=== PATIENT | male | born 1955 | race African-American/Black ===

== ENCOUNTER 2017-01-13 07:16 | Inpatient (IN) | payer OTHER ==
--- NOTE | ~2017-01-13 | DS ---
Unit #: [id number] #: [id number] Patient: HARRIET FORD [id number] [facility] [address] [place] [address] [id number] I MR#: [id number] NAME: HARRIET FORD. ROOM: [facility] Age: 61 Sex: M Admission Date: 01/13/2017 : 1955 Discharge Date: 01/22/2017 Attending Physician: Yosef Friend M.D. Primary Care Physician: Jamie Nino M.D. DISCHARGE SUMMARY REASON FOR ADMISSION Harriet is a 61-year-old man with a history of schizophrenia, who came in reporting that he had been off his medications, was paranoid and hopeless with suicidal ideation. He was admitted for stabilization. DIAGNSOTIC STUDIES LABORATORY RESULTS: Please see hospital chart. HOSPITAL COURSE The patient was admitted and placed on suicide and psychosis precautions. Seroquel 600 mg b.i.d. was restarted. The patient had an uneventful hospital course, staying mainly in his room away from peers and staff, and participating only rarely in psychotherapy groups and activities. He did make plans with the social work nurse to attend the [facility] Crisis [facility] after discharge, and on the date of discharge, he contracted for safety with no further suicidal ideation, intent, or plan. DISCHARGE DIAGNOSES AXIS I: Schizophrenia, paranoid type, F20.0. AXIS II: No diagnosis. AXIS III: History of degenerative disk disease. AXIS IV: AXIS V: DISCHARGE INSTRUCTIONS Follow up with [facility]. DISCHARGE MEDICATIONS Seroquel 300 mg b.i.d. for psychosis. CONDITION AT DISCHARGE Improved. PROGNOSIS Fair to good. DIET AND ACTIVITY Per primary care doctor. Dictated by... Yosef Friend M.D. Unit #: [id number] #: [id number] Patient: HARRIET FORD MR/modl TD: 01/22/2017 11:57 JOB #: [id number] DISCHARGE SUMMARY Page 1 of 1 X Yosef Friend MD X DISCHARGE SUMMARY
--- NOTE | ~2017-01-13 | PN ---
Unit #: [id number] #: [id number] Patient: HARRIET FORD [id number] [facility] [address] [place] [address] [id number] MR#: [id number] NAME: HARRIET FORD ROOM: P214 Age: 61 Sex: M Admission Date: 01/13/2017 : 1955 Attending Physician: Yosef Friend M.D. Admitting Physician: Yosef Friend M.D. Primary Care Physician: Jamie Nino M.D. [facility] PROGRESS NOTES DATE 01/20/2017 DISCUSSION Harriet is quiet and cooperative on the unit today. He has a placement coming up Sunday at the [facility] crisis stabilization unit. He is alert and fully oriented and continues to vaguely endorse suicidal ideation but feels safe going to [facility]. ASSESSMENT Major depression. PLAN Continue current treatment plan. Dictated by... Yosef Friend M.D. MRH/ts TD: 01/23/2017 08:52 JOB #: [id number] [facility] PROGRESS NOTES Page 1 of 1 X Yosef Friend MD PROGRESS NOTE
--- NOTE | ~2017-01-13 | PA ---
Unit #: [id number] #: [id number] Patient: HARRIET FORD [id number] [facility] [address] [place] [address] [id number] I MR#: [id number] NAME: HARRIET FORD ROOM: [facility] Age: 61 Sex: M Admission Date: 01/13/2017 : 1955 Date of Assessment: Attending Physician: Yosef Friend M.D. Admitting Physician: Yosef Friend M.D. Primary Care Physician: Jamie Nino M.D. PSYCHIATRIC ASSESSMENT INFORMANTS Patient, reliable; OLOP, reliable. CHIEF COMPLAINT Suicidal ideation. HISTORY OF PRESENT ILLNESS Mr. Ford is a 61-year-old man, who reported that he came to the emergency room after a recent discharge from the [facility]. He had suicidal ideation with a plan to jump off the parking garage and could not contract for safety. He was unable to contract for safety and was admitted for stabilization. PAST PSYCHIATRIC HISTORY Previous admissions to this facility as well as [facility], [facility], and multiple outpatient placements through [facility]. Seroquel and Thorazine were listed as his current medications. FAMILY PSYCHIATRIC HISTORY Noncontributory. SOCIAL HISTORY The patient has an erratic history of homelessness and although he is and he is from his family. He is a high-school graduate, who is on long-term disability. PAST MEDICAL HISTORY Significant for degenerative disk disease. MEDICATIONS Please see MAR. ALLERGIES No known medication allergies. SUBSTANCE USE HISTORY No known history of chemical dependence. MENTAL STATUS EXAMINATION The patient presented as a mildly disheveled man, who appeared his stated age. He was cooperative with the examination. His speech was soft, Unit #: [id number] #: [id number] Patient: HARRIET FORD sparse, but easily understood. Musculoskeletal examination was calm. His mood was irritable with a decreased range of affect. He was alert and fully oriented. Memory and concentration were fair. Thought processes were stilted with evidence of paranoia and response with sternal stimuli. He reported suicidal ideation and could not contract for safety. Insight and judgment, fair. Fund of knowledge and abstraction, fair. ASSETS AND LIABILITIES The patient knows local resources and is presenting voluntarily for treatment. Liabilities include noncompliance with medication. ADMITTING DIAGNOSES Morley I: Schizophrenia, paranoid type. Morley II: No diagnosis. Morley III: History of degenerative disk disease. PSYCHIATRIC PLAN The patient was admitted and placed on suicide and psychosis precautions. Seroquel 600 mg at bedtime will be restarted. We will monitor for further response and make medication adjustments as appropriate. TREATMENT GOALS Resolution of psychosis, improvement in insight, and improvement in coping skills. DISCHARGE PLANNING Follow up with [facility]. ESTIMATED LENGTH OF STAY 5 days. Dictated by... Yosef Friend M.D. BENITO/jordan TD: 03/26/2017 12:00 JOB #: [id number] PSYCHIATRIC ASSESSMENT Page 1 of 1 X Yosef Friend MD X PSYCHIATRIC ASSESSMENT
--- NOTE | ~2017-01-13 | HP ---
Unit #: [id number] #: [id number] Patient: AMOS FORD [id number] [facility] [address] [place] [address] [id number] I MR#: [id number] NAME: AMOS FORD. ROOM: [facility] Age: 61 Sex: M Admission Date: 01/13/2017 : 1955 Attending Physician: Yosef Friend M.D. Admitting Physician: Yosef Friend M.D. Primary Care Physician: Jamie Nino M.D. HISTORY AND PHYSICAL HISTORY OF PRESENT ILLNESS Amos is a 61-year-old male admitted on 01/13/2017 for suicidal ideation with a plan to jump off of the parking garage and jump in front of a car. PAST MEDICAL HISTORY 1. Chronic back pain. 2. Herniated disk. 3. History of peptic ulcer disease. 4. Asthma. PAST SURGICAL HISTORY Colonoscopy and left wrist surgical repair after a fracture. SOCIAL HISTORY Smokes one pack of cigarettes weekly. Occasional alcohol use. No illegal drug use. He is currently single and living alone. FAMILY HISTORY Noncontributory. REVIEW OF SYSTEMS CONSTITUTIONAL: No fever or chills. HEENT: Denies any sore throat, ear pain or runny nose. CARDIOVASCULAR: Denies chest pain, irregular heart rhythm or palpitations. CHEST: Denies shortness of breath or cough. No hemoptysis. GASTROINTESTINAL: Denies nausea, vomiting, diarrhea or chronic constipation. ENDOCRINE: Denies history of increased thirst or urination. No recent significant weight loss or gain. GENITOURINARY: Denies dysuria, frequency, or hematuria. SKIN: Denies any rashes. HEMATOLOGIC: Denies history of increased bleeding or bruising. MUSCULOSKELETAL: Denies any hot, swollen joints. No generalized muscle pain. NEUROLOGIC: Denies problems with vision or speech. No frequent, severe headaches. No numbness, tingling or weakness in any extremities. Denies loss of bladder or bowel control. CURRENT MEDICATIONS 1. Seroquel. 2. Ventolin inhaler. Unit #: [id number] #: [id number] Patient: AMOS FORD ALLERGIES No known drug allergies. PHYSICAL EXAMINATION GENERAL: Alert, oriented, no acute distress. VITAL SIGNS: Blood pressure 104/78, heart rate 105, temperature 97.3, and respirations 12. HEIGHT: 6 feet 0. WEIGHT: 155 pounds. SKIN: Warm, dry. No rashes or lesions, track bhatti, cuts, etc. HEENT: Normocephalic. TMs not viewed. Oronasal passages clear. Conjunctivae clear. PERRLA. EOM is intact. NECK: No lymphadenopathy or thyromegaly. HEART: Regular rate and rhythm. No murmur, gallop, or rub. LUNGS: Clear to auscultation bilaterally. ABDOMEN: Soft, nontender without palpable masses or hepatosplenomegaly. : Not assessed. EXTREMITIES: No evidence of cyanosis, clubbing, or edema. Moves all extremities independently without obvious deficit. NEUROLOGICAL: Grossly within normal limits. Cranial Nerves: II: Visual tavarez are intact. III, IV AND : Extraocular movements are intact. Pupils are equal, round and reactive to light. V: Facial sensation is grossly normal. VII: Facial movements and expression are normal. VIII: Auditory acuity grossly intact. IX, X: Uvula is midline. Phonation is normal. XI: Patient shrugs shoulders and turns head normally. XII: Tongue protrudes in the midline. Sensory and Motor Function: Sensory and motor sensation is grossly normal. Motor: moves all extremities well. Coordination: Gait is normal. Deep Tendon Reflexes: Intact. IMPRESSION 1. Psychiatric admission. 2. Chronic back pain. 3. Herniated disk. 4. Peptic ulcer disease. 5. Asthma. RECOMMENDATIONS PSYCHIATRIC: Per psychiatrist. MEDICAL: No contraindication to participate in this facility's activities. MEDICAL PROGNOSIS Good. MEDICAL CONDITION Stable. Dictated by... Tracie Wyatt/wood TD: 01/13/2017 14:56 JOB #: [id number] Unit #: [id number] #: [id number] Patient: AMOS FORD HISTORY AND PHYSICAL Page 1 of 1 X HUANG GALLARDO APRN HISTORY AND PHYSICAL
--- NOTE | ~2017-01-13 | PN ---
Unit #: [id number] #: [id number] Patient: HARRIET FORD [id number] [facility] [address] [place] [address] [id number] I MR#: [id number] NAME: HARRIET FORD ROOM: [facility] Age: 61 Sex: M Admission Date: 01/13/2017 : 1955 Attending Physician: Yosef Friend M.D. Admitting Physician: Yosef Friend M.D. Primary Care Physician: Markus Rg PROGRESS NOTES DATE 01/18/2017 DISCUSSION The patient offers no new complaints today. He is resting comfortably but arouses without difficulty. Dr. Friend will resume care tomorrow. Dictated by... Nish Navarro M.D. CB/lindsay TD: 01/18/2017 14:52 JOB #: [id number] [facility] PROGRESS NOTES Page 1 of 1 X Nish Navarro MD X PROGRESS NOTE
[~2017-01-13 07:16] MED LIST: FLEXERIL10 M1 PO; FLEXERIL10 MG PO; MEDROL4 MG/DOSE- PO; PAXIL PO; SEROQUEL PO; ZYPREXA PO
[2017-01-15 09:46] LABS: URINE APPEARANCE CLEAR; URINE BILIRUBIN NEG (NEG); URINE BLOOD NEG (NEG); URINE COLOR YELLOW; URINE GLUCOSE NEG (NEG); URINE KETONE NEG (NEG); URINE LEUKOCYTE ESTERASE NEG (NEG); URINE NITRATE NEG (NEG); URINE PROTEIN NEG (NEG); URINE SPECIFIC GRAVITY 1.012 (1.003-1.035); URINE UROBILINOGEN 0.2 MG/DL (NEG)
[2017-01-15 09:59] LABS: THYROID STIMULATING HORMONE 0.83 uIU/ml (0.34-5.60)
[2017-01-15 10:08] LABS: FREE THYROXIN (T4) 0.93 ng/dL (0.58-1.64)
[2017-01-15 10:09] LABS: AMPHETAMINE NEG (NEG); BARBITURATES NEG (NEG); BENZODIAZEPINES NEG (NEG); COCAINE POS (NEG); MARIJUANA NEG (NEG); OPIATES NEG (NEG); TRICYCLIC ANTIDEPRESSANTS POS (NEG); U METHADONE NEG (NEG)
== END 2017-01-22 10:39 | DRG 885 ==
LOC: P2S 07:16
PROVIDERS: Psychiatry & Neurology Psychiatry
DX: F20.0 Paranoid schizophrenia (principal); R45.851 Suicidal ideations; F32.9 Major depressive disorder, single episode, unspecified
CPT/HCPCS: 80307; 81003; 84439; 84443